=== PATIENT | female | born 1955 | race Caucasian/White ===

== ENCOUNTER → 2022-05-29 10:10 | Outpatient (CLI) | payer MEDICARE, OTHER, SELFPAY ==
--- NOTE | 2022-05-29 10:12 | DI.RAD.S_ITS ---
PROCEDURE: XR CERVICAL SPINE 2V OR 3V INDICATIONS: cervical radiculopathy TECHNIQUE: 3 view(s) of the cervical spine were acquired. COMPARISON: None. FINDINGS: Bones: No fractures or dislocations to the superior T2 level. The lateral masses of C1 appear intact on the odontoid view. No suspicious bony lesions. There is moderate to severe disc space narrowing seen at C4-C5 and C5-C6, with moderate disc space narrowing seen at C6-C7 and C7-T1. Endplate irregularity and sclerosis are seen, which are overall worst at C5-C6. There is overall straightening of the normal cervical lordosis. Minimal anterolisthesis is seen at L3-L4, with minimal retrolisthesis at C5-C6 and C6-C7. Soft tissues: No prevertebral soft tissue swelling. The visualized lung demonstrates an unremarkable appearance. IMPRESSION: Cervical spine degenerative changes are seen, which are overall worst inferiorly. If it would be helpful for clinical management decision making, please consider a dedicated cervical spine MRI for further evaluation (assuming that there is no contraindication). Dictated by: Zaheer Ward M.D. on 05/29/2022 at 9:59 Approved by: Zaheer Ward M.D. on 05/29/2022 at 10:00
[2022-05-29 11:09] LABS: Add Manual Diff / Slide Review NO; Basophils Absolute Auto 100 /uL (0-100); Basophils Percent Auto 1.5 % (0-2); Eosinophils Absolute Auto 600 /uL (0-450); Eosinophils Percent Auto 16.5 % (2-4); Hematocrit 37.6 % (36-46); Hemoglobin 12.3 g/dL (12.0-16.0); Lymphocytes Absolute Auto 1200 /uL (1100-4500); Lymphocytes Percent Auto 31.5 % (25-40); Mean Corpuscular HGB Conc 32.8 % (30-36); Mean Corpuscular Hemoglobin 28.8 PG (26-34); Mean Corpuscular Volume 87.9 fL (80-100); Monocytes Absolute Auto 400 /uL (0-900); Monocytes Percent Auto 10.4 % (3-14); Neutrophils Absolute Auto 1600 /uL (1500-7000); Neutrophils Percent Auto 40.1 % (50-75); Platelet Count 296 X10^3/uL (150-400); Red Blood Cell Count 4.28 X10^6/uL (4.0-5.2); Red Cell Distribution Width 13.3 % (11.6-14.8); White Blood Cell Count 3.9 X10^3/uL (4.5-11.0)
[2022-05-29 11:22] LABS: Creatine Kinase 33 U/L (30-135)
[2022-05-29 11:26] LABS: Erythrocyte Sedimentation Rate 7 MM/HR (0-20)
[2022-05-29 11:44] LABS: Rheumatoid Factor < 8.6 IU/mL (<12.0)
[2022-06-01 18:27] LABS: ANA Screen, IFA Positive (.)
[2022-06-01 19:58] LABS: CCP Antibodies IgG/IgA 6 units (0-19)
== END ==
PROVIDERS: PCP Family Medicine; Referring Provider Family Medicine; Visit Provider Family Medicine
DX: M35.3 Polymyalgia rheumatica (principal); M47.22 Other spondylosis with radiculopathy, cervical region; M25.50 Pain in unspecified joint
CPT/HCPCS: 36415; 72040; 82550; 85025; 85651; 86038; 86200; 86430

== ENCOUNTER → 2022-06-02 08:58 | Outpatient (CLI) | payer MEDICARE, OTHER, SELFPAY ==
[2022-06-03 17:17] LABS: DNA (DS) Antibody 3 IU/mL (0-9)
== END ==
PROVIDERS: PCP Family Medicine; Visit Provider Family Medicine
DX: R76.8 Other specified abnormal immunological findings in serum (principal)
CPT/HCPCS: 86225; 86235

== ENCOUNTER → 2022-06-02 16:51 | Outpatient (CLI) | payer MEDICARE, OTHER, SELFPAY ==
--- NOTE | 2022-06-02 16:52 | DI.MRI.S_ITS ---
PROCEDURE: MR CERVICAL SPINE WO CON INDICATIONS: cervical radiculopathy TECHNIQUE: Noncontrast sagittal T1 spin echo and T2 fast spin echo, sagittal STIR, foraminal oblique sagittal T2 fast spin echo, and axial gradient echo or T2 fast spin echo through the cervical spine. COMPARISON: [facility], CR, XR CERVICAL SPINE 2V OR 3V, 05/29/2022, 10:36. FINDINGS: Image quality: This examination is limited by involuntary motion artifact. Alignment and Curvature: There is overall straightening of the normal cervical lordosis. There is minimal retrolisthesis seen at C4-C5, C5-C6, and C6-C7. Bone Marrow: Marrow demonstrates normal overall signal. Spinal Cord: Visualized spinal cord has normal size and signal. No cerebellar tonsillar herniation. Paraspinous Soft Tissues: No paravertebral masses. Prevertebral soft tissues are normal in thickness. C2-C3: No significant abnormality is seen. C3-C4: Mild loss of disc height is seen. Loss of disc signal is seen. A mild degree of generalized disc osteophyte complex is seen. There is minimal right-sided and mild left-sided facet hypertrophy. There is moderate right-sided and [id number] left-sided neural foraminal narrowing. Minimal central canal narrowing is seen. C4-C5: At least moderate loss of disc height and disc signal can be seen. Moderate generalized disc osteophyte complex is seen. There is a central disc osteophyte protrusion seen. Moderate facet hypertrophy is seen, left worse than right. Moderate bilateral neural foraminal narrowing is seen. Moderate central canal narrowing is seen. There is associated mass effect upon the ventral spinal cord. C5-C6: At least moderate loss of disc height and disc signal can be seen. At least moderate disc osteophyte complex is seen, with a central disc osteophyte protrusion. At least moderate facet hypertrophy is seen, left worse than right. There is moderate to severe left-sided and moderate right-sided neural foraminal narrowing. Moderate central canal narrowing is seen. There is associated mass effect upon the ventral spinal cord. C6-C7: Moderate loss of disc height is seen. Loss of disc signal is seen. At least moderate disc osteophyte complex is seen, with a central disc osteophyte protrusion. Moderate facet joint hypertrophy is seen. There is moderate right-sided and at least moderate left-sided neural foraminal narrowing. Moderate central canal narrowing is seen. A minimal amount of mass effect can be seen upon the ventral spinal cord. C7-T1: [id number] loss of disc height and disc signal can be seen. A mild degree of generalized disc osteophyte complex is seen. No significant neural foraminal or central canal narrowing can be seen. IMPRESSION: Multiple levels of cervical spine degenerative change are seen, which are overall worst at the C5-C6 level. Dictated by: Zaheer Ward M.D. on 06/03/2022 at 11:58 Approved by: Zaheer Ward M.D. on 06/03/2022 at 12:01
== END ==
PROVIDERS: PCP Family Medicine; Referring Provider Family Medicine; Visit Provider Family Medicine
DX: M47.22 Other spondylosis with radiculopathy, cervical region; R76.8 Other specified abnormal immunological findings in serum
CPT/HCPCS: 72141; 86225; 86235

== ENCOUNTER → 2023-10-26 16:03 | Outpatient (CLI) | payer MEDICARE, OTHER, SELFPAY ==
[2023-10-26 17:27] LABS: Add Manual Diff / Slide Review NO; Basophils Absolute Auto 100 /uL (0-100); Basophils Percent Auto 2.1 % (0-2); Eosinophils Absolute Auto 400 /uL (0-450); Eosinophils Percent Auto 9.8 % (2-4); Hematocrit 38.8 % (36-46); Hemoglobin 12.9 g/dL (12.0-16.0); Lymphocytes Absolute Auto 1200 /uL (1100-4500); Lymphocytes Percent Auto 26.5 % (25-40); Mean Corpuscular HGB Conc 33.1 % (30-36); Mean Corpuscular Hemoglobin 29.4 PG (26-34); Mean Corpuscular Volume 88.7 fL (80-100); Monocytes Absolute Auto 500 /uL (0-900); Monocytes Percent Auto 10.4 % (3-14); Neutrophils Absolute Auto 2300 /uL (1500-7000); Neutrophils Percent Auto 51.2 % (50-75); Platelet Count 306 X10^3/uL (150-400); Red Blood Cell Count 4.38 X10^6/uL (4.0-5.2); Red Cell Distribution Width 13.8 % (11.6-14.8); White Blood Cell Count 4.6 X10^3/uL (4.5-11.0)
[2023-10-26 17:39] LABS: Alanine Aminotransferase 15 IU/L (<35); Albumin 3.9 g/dL (3.5-5.0); Albumin Globulin Ratio 1.4 (1.0-2.8); Alkaline Phosphatase 63 U/L (38-126); Aspartate Aminotransferase 26 IU/L (14-36); Bilirubin Total 0.3 mg/dL (0.2-1.3); Blood Urea Nitrogen 27 mg/dL (7-17); Calcium 8.8 mg/dL (8.4-10.2); Carbon Dioxide 32 mmol/L (22-32); Chloride 105 mmol/L (98-107); Estimated Glomerular Filt Rate > 60 mL/min (>60); Globulin 2.7 g/dL (1.7-4.1); Glucose 108 mg/dL (80-110); HEMOLYSIS < 15 (0-50); Potassium 3.8 mmol/L (3.4-5.1); Sodium 139 mmol/L (137-145); Total Protein 6.6 g/dL (6.3-8.2)
[2023-10-26 17:43] LABS: Rheumatoid Factor < 8.6 IU/mL (<12.0)
[2023-10-26 18:27] LABS: Vitamin B12 422 pg/mL (239-931)
[2023-10-26 21:48] LABS: Erythrocyte Sedimentation Rate 6 MM/HR (0-20)
[2023-10-29 18:12] LABS: CCP Antibodies IgG/IgA 10 units (0-19)
== END ==
PROVIDERS: PCP Family Medicine; Referring Provider Physician Assistant; Visit Provider Physician Assistant
DX: F32.A Depression, unspecified (principal); R53.83 Other fatigue
CPT/HCPCS: 36415; 80053; 82607; 85025; 85651; 86200; 86430

== ENCOUNTER → 2023-11-09 10:43 | Outpatient (CLI) | payer MEDICARE, OTHER, SELFPAY ==
[2023-11-09 12:37] LABS: Cholesterol 131 mg/dL (140-199); HDL Cholesterol 66 mg/dL (40-60); LDL Cholesterol Calculated 41 mg/dL (<100); Triglycerides 118 mg/dL (35-150)
[2023-11-09 12:42] LABS: High Sensitivity CRP - Cardiac 1.4 mg/L (1.0-3.0)
[2023-11-09 13:12] LABS: TSH w/ Reflex to FT4 1.15 uIU/mL (0.47-4.68)
== END ==
PROVIDERS: PCP Family Medicine; Referring Provider Family Medicine; Visit Provider Family Medicine
DX: Z13.220 Encounter for screening for lipoid disorders (principal); R53.83 Other fatigue; M25.50 Pain in unspecified joint
CPT/HCPCS: 36415; 80061; 84443; 86140

== ENCOUNTER → 2025-03-05 12:26 | Outpatient (CLI) | payer MEDICARE, OTHER, SELFPAY | PROVIDERS: PCP Family Medicine; Referring Provider Family Medicine; Visit Provider Family Medicine | DX: R76.8 Other specified abnormal immunological findings in serum (principal); M06.9 Rheumatoid arthritis, unspecified | CPT/HCPCS: 36415; 85651; 86140 ==

== ENCOUNTER 2025-03-25 20:28 | Inpatient (IN) | payer MEDICARE, OTHER, SELFPAY ==
[2025-03-25 21:11] VITALS: BP 138/73; PULSE 93; RESP 18; TEMP 36.7; O2SAT 98; BMI 23.0
[2025-03-25] MEDS: ONDANSETRON 4 MG/2 ML INJ IV (21:27)
[2025-03-25 21:31] LABS: Add Manual Diff / Slide Review NO; Hematocrit 43.2 % (36-46); Hemoglobin 14.3 g/dL (12.0-16.0); Lymphocytes Absolute Auto 1300 /uL (1100-4500); Mean Corpuscular HGB Conc 33.2 % (30-36); Mean Corpuscular Hemoglobin 30.7 PG (26-34); Mean Corpuscular Volume 92.4 fL (80-100); Platelet Count 400 X10^3/uL (150-400)
[2025-03-25 21:41] LABS: Alanine Aminotransferase 27 IU/L (<35); Albumin 4.3 g/dL (3.5-5.0); Albumin Globulin Ratio 1.7 (1.0-2.8); Alkaline Phosphatase 63 U/L (38-126); Blood Urea Nitrogen 24 mg/dL (7-17); Calcium 9.3 mg/dL (8.4-10.2); Carbon Dioxide 31 mmol/L (22-32); Chloride 101 mmol/L (98-107); Estimated Glomerular Filt Rate > 60 mL/min (>60); Globulin 2.6 g/dL (1.7-4.1); Glucose 104 mg/dL (70-99); HEMOLYSIS < 15 (0-50); Lipase 316 U/L (23-300); Potassium 4.1 mmol/L (3.4-5.1); Sodium 139 mmol/L (137-145); Total Protein 6.9 g/dL (6.3-8.2)
--- NOTE | 2025-03-25 21:55 | DI.CT.S_ITS ---
PROCEDURE: CT ABDOMEN PELVIS W CON INDICATIONS: history of sbo, has abd pain and bloating TECHNIQUE: After the administration of intravenous contrast, axial sections acquired from the lung bases to the pubic symphysis. Coronal and sagittal reformats were performed. For radiation dose reduction, the following was used: automated exposure control, adjustment of mA and/or kV according to patient size. COMPARISON: None. FINDINGS: Image quality: Diagnostic. Lower Chest: No significant findings. ABDOMEN: Liver: No solid mass. Simple hepatic cysts and subcentimeter hypodensities which are too small to accurately characterize. Gallbladder: No radiopaque gallstones or wall thickening. Biliary ducts: No biliary dilation. Pancreas: No ductal dilation. Spleen: Size is within normal limits. Adrenal Glands: No adrenal nodules. Kidneys and Ureters: No hydronephrosis. No solid mass. No complex renal cystic lesion which requires follow up. Stomach and Bowel: Partial colectomy with left lower quadrant end colostomy. Wall thickening of the distal colon extending into the colostomy. There is a large burden of stool throughout the entire colon leading to the colostomy. Small bowel is normal in caliber. Peritoneum: No abnormal intraperitoneal fluid. No free air. Ventral Wall: No significant ventral hernia. Abdominal Nodes: No retroperitoneal or mesenteric adenopathy by size criteria. Vessels: Aorta and inferior vena cava are normal in size. PELVIS: Pelvic Organs: Unremarkable. Bladder: No bladder wall thickening, accounting for underdistention. Pelvic Nodes: No enlarged lymph nodes. Miscellaneous: No inguinal hernias are seen. Bones: No aggressive osseous abnormality. Degenerative changes of the spine with dextroscoliotic curvature. IMPRESSION: 1. Partial colectomy with left lower quadrant end colostomy. There is a significant stool burden throughout the entire colon leading to the colostomy. Findings are concerning for significant constipation versus obstruction of the colostomy, recommend clinical correlation. 2. Wall thickening of the distal colon leading into the colostomy concerning for colitis. 3. No evidence of small-bowel obstruction. Dictated by: Neville Kenny M.D. on 03/25/2025 at 22:22 Approved by: Neville Kenny M.D. on 03/25/2025 at 22:27
[2025-03-25 22:04] LABS: Ictotest Urine Negative (Negative)
[2025-03-26] VITALS (12 sets, daily range): BP systolic 107–136; BP diastolic 56–81; PULSE 74–101; RESP 16–19; TEMP 36.1–36.2; O2SAT 91–98; BMI 22.8
[2025-03-26] MEDS: PIPERACILLIN/TAZO 4.5 GM in SODIUM CHLORIDE 0.9% 100 ML IV (01:41)
--- NOTE | 2025-03-26 01:56 | ED_ITS ---
HPI - Abdominal Pain General Chief Complaint: Abdominal Pain Stated Complaint: poss bowel obstruction Time Seen by Provider: 03/26/25 00:15 Source: patient Mode of arrival: Ambulatory History of Present Illness HPI narrative: 69-year-old female with history of anal cancer diagnosed 20 years ago in [facility], initially treated with chemotherapy and radiation for 6 weeks, seemed to be doing well for a number of years, about 12 years ago patient started having stricture related bowel obstructions, leading to partial bowel resection and left lower quadrant colostomy, subsequent hernia in the central incision that was treated with mesh, and revision of the ostomy done also about 12 years ago, as her last surgical intervention in this area. She moved from [place] to [place] for years ago. Now having left lower quadrant discomfort in the area of her ostomy, decreased output in her ostomy bag the no ostomy output. She tried MiraLax. Here for increasing pain, concerned about possible obstruction. MD complaint: abdominal pain Related Data Previous Rx's ?Medication ?Instructions ?Recorded clobetasol 0.05 % topical cream 1 g topical BID #60 gr ams 07/16/24 rizatriptan 10 mg tablet 10 mg PO Q12H PRN migraine 1 09/17/23 headache #9 tabs meloxicam 15 mg tablet 15 mg PO DAILY PRN pain, mod erate 11/20/24 to severe #90 tabs estradiol 0.1 mg/24 hr semiweekly 1 patch transdermal 2XW #24 ea 01/03/25 transdermal patch desvenlafaxine succinate 50 mg 50 mg PO DAILY #90 tabs 01/15/25 tablet,extended release 24 hr sumatriptan succinate 100 mg tablet 100 mg PO Q12H PRN for migraine #9 01/22/25 tabs valacyclovir 1 gram tablet 1,000 mg PO DAILY #90 tabs 02/04/25 bupropion HCl 75 mg tablet 75 mg PO DAILY #90 tabs progesterone micronized 100 mg See Rx Instructions PO BEDTIME 03/06/25 capsule Balance estradiol and protec t endometrium #120 caps progesterone micronized 200 mg See Rx Instructions PO .COMPLEX 03/06/25 capsule #90 caps dicyclomine 20 mg tablet 20 mg PO QPM #90 tabs polyethylene glycol 3350 17 gram 17 gm PO DAILY PRN Ab dominal 03/26/25 oral powder packet Distention #30 ea Allergies Allergy/AdvReac Type Severity Reaction Status Date / Time NSAIDS (Non-Steroidal AdvReac Intermediate Irritates Verified 03/25/25 21:16 Anti-Inflamma stomach lining Patient History Medical History Gastritis due to nonsteroidal anti-inflammatory drug (NSAID) GERD (gastroesophageal reflux disease) Scleroderma Herpes Anal cancer (~2018) HPV in female Migraine aura without headache Psoriasis Surgical History Anesthesia History of intestinal surgery (~2019) Family History Father COPD (chronic obstructive pulmonary disease) Mother Osteoarthritis Bowel obstruction Chronic pain Sister Osteoarthritis Social History marital status: household members: spouse lives independently: Yes caregiver/support person: No pets and animals: Yes education level: college (2 year nursing ) occupational status: previously employed (Retired Nurse ) seatbelt use: always helmet use: Yes water heater temp set < 120 deg: Yes working smoke detector in home: Yes fire extinguisher in home: Yes carbon monox detector in home: Yes firearms in home: No do you feel safe at home: Yes Smoking Status: Never smoker alcohol intake: former substance use type: does not use well-balanced diet: about half the time daily servings fruits/ve-4 caffeine: Yes (rare/occasional) eating out: rarely or never Type(s) of exercise: walking frequency: daily duration: 15-30 minutes/day Smoking Status: Never smoker Exam Narrative Exam Narrative: GENERAL: Well-developed patient, in mild distress. HEAD: Atraumatic. Normocephalic. EYES: Pupils equal round and reactive. Extraocular motions intact. No scleral icterus. No injection or drainage. ENT: Nose without bleeding, purulent drainage. Throat without erythema, tonsillar hypertrophy or exudate. Airway patent. NECK: Trachea midline. Non tender CARDIOVASCULAR: Regular rate and rhythm without murmurs, gallops, or rubs. RESPIRATORY: Clear to auscultation. Breath sounds equal bilaterally. No wheezes, rales, or rhonchi. GASTROINTESTINAL: Abdomen with central incision, left lower quadrant ostomy, tenderness pilo-osotomy. Left lower quadrant ostomy site with brown stool, silvestre ostomy seemed well-appearing. EXTREMITIES: No edema or joint tenderness. BACK: Nontender without deformity or crepitance. No flank tenderness. NEURO: AOx3. Motor functions grossly nonfocal. SKIN: No rash or erythema of visible areas Initial Vital Signs Initial Vital Signs: Vital Signs Temperature 98.1 F 03/25/25 21:11 Pulse Rate 93 H 03/25/25 21:11 Respiratory Rate 18 03/25/25 21:11 Blood Pressure 138/73 03/25/25 21:11 Pulse Oximetry 98 03/25/25 21:11 Oxygen Delivery Method Room Air 03/25/25 21:11 Course Orders Ordered: Acetaminophen (Acetaminophen 325 Mg Tablet) 650 mg PO Q6H PRN PRN Reason: Fever/Mild Pain (1-3) Sodium Chloride (Normal Saline 0.9%) 1,000 mls @ 75 mls/hr IV CONT [facility] Last Admin: 03/26/25 17:46 Dose: 75 mls/hr Documented By: Infusion: 03/26/25 17:46 Dose: Infused Documented By: Admin: 03/26/25 05:33 Dose: 75 mls/hr Documented By: Piperacillin Sod/Tazobactam (Sod 3.375 gm/ Sodium Chloride) 100 mls @ 25 mls/hr IV Q8H [facility] Last Admin: 03/26/25 16:01 Dose: 25 mls/hr Documented By: Infusion: 03/26/25 11:16 Dose: Infused Documented By: Admin: 03/26/25 07:16 Dose: 25 mls/hr Documented By: Metoclopramide HCl (Metoclopramide 10 Mg/2 Ml Inj) 10 mg IV Q8HR [facility] Last Admin: 03/26/25 16:01 Dose: 10 mg Documented By: INGE Naloxone HCl (Naloxone 0.4 Mg/Ml Vial) 0.2 mg IV Q2MIN PRN PRN Reason: Opiate Reversal Ondansetron HCl (Ondansetron 4 Mg/2 Ml Inj) 4 mg IV NOW PRN PRN Reason: Nausea And Vomiting Last Admin: 03/25/25 21:27 Dose: 4 mg Documented By: JG Ondansetron HCl (Ondansetron 4 Mg Odt) 4 mg PO NOW PRN PRN Reason: Nausea And Vomiting Ondansetron HCl (Ondansetron 4 Mg/2 Ml Inj) 4 mg IV Q8HR PRN PRN Reason: Nausea And Vomiting Polyethylene Glycol (Polyethylene Glycol 3350 17 Gm Powd.Pack) 17 gm PO DAILY [facility] Last Admin: 03/26/25 08:33 Dose: 17 gm Documented By: INGE Discontinued Medications Piperacillin Sod/Tazobactam (Sod 4.5 gm/ Sodium Chloride) 100 mls @ 200 mls/hr IV NOW ONE Stop: 03/26/25 00:44 Last Infusion: 03/26/25 02:15 Dose: Infused Documented By: Admin: 03/26/25 01:41 Dose: 200 mls/hr Documented By: BARNEY Piperacillin Sod/Tazobactam (Sod 4.5 gm/ Sodium Chloride) 100 mls @ 200 mls/hr IV Q8H [facility] Last Admin: 03/26/25 07:38 Dose: Not Given Documented By: INGE Piperacillin Sod/Tazobactam (Sod 4.5 gm/ Sodium Chloride) 100 mls @ 200 mls/hr IV Q8H [facility] Vital Signs Vital signs: Vital Signs - 8 hr 03/25/25 21:11 03/26/25 00:58 03/26/25 00:58 Temperature 98.1 F Pulse Rate 93 H 101 H Respiratory Rate 18 18 Blood Pressure 138/73 125/77 Pulse Oximetry 98 98 Oxygen Delivery Method Room Air 03/26/25 01:00 03/26/25 01:00 03/26/25 01:30 Temperature Pulse Rate 97 H Respiratory Rate 17 Blood Pressure 136/81 118/63 Pulse Oximetry 97 Oxygen Delivery Method Room Air 03/26/25 01:30 03/26/25 02:00 03/26/25 02:00 Temperature Pulse Rate 94 H 79 Respiratory Rate 18 Blood Pressure 113/61 Pulse Oximetry 96 96 Oxygen Delivery Method Room Air 03/26/25 02:30 03/26/25 02:30 Temperature Pulse Rate 90 Respiratory Rate 17 Blood Pressure 127/61 Pulse Oximetry 94 Oxygen Delivery Method Room Air MDM - Abdominal Pain Lab Data Attestation: I reviewed the patient's lab results. Lab results narrative: White blood cell count 77952, hemoglobin 14.3, platelets adequate. Glucose 104. BUN 24 with creatinine 0.74, serum CO2 31 normal, electrolytes normal. Liver functions normal. Lipase 316 slight elevation. Urine dip negative. 03/26/25 06:16 03/26/25 06:16 Labs: Lab Results 03/25/25 03/25/25 Range/Units 21:23 21:30 WBC 10.5 (4.5-11.0) X10^3/uL RBC 4.67 (4.0-5.2) X10^6/uL Hgb 14.3 (12.0-16.0) g/dL Hct 43.2 (36-46) % MCV 92.4 (80-100) fL MCH 30.7 (26-34) PG MCHC 33.2 (30-36) % RDW 13.3 (11.6-14.8) % Plt Count 400 (150-400) X10^3/uL Neut % (Auto) 71.9 (50-75) % Lymph % (Auto) 12.9 L (25-40) % [place] % (Auto) 9.7 (3-14) % Eos % (Auto) 4.8 H (2-4) % Baso % (Auto) 0.7 (0-2) % Neut # (Auto) 7500 H (2540-0971) /uL Lymph # (Auto) 1300 (2007-9838) /uL [place] # (Auto) 1000 H (0-900) /uL Eos # (Auto) 500 H (0-450) /uL Baso # (Auto) 100 (0-100) /uL Sodium 139 (137-145) mmol/L Potassium 4.1 (3.4-5.1) mmol/L Chloride 101 (98-107) mmol/L Carbon Dioxide 31 (22-32) mmol/L BUN 24 H (7-17) mg/dL Creatinine 0.74 (0.52-1.04) mg/dL Estimated GFR > 60 (>60) mL/min BUN/Creatinine Ratio 32.4 H (6-22) Glucose 104 H (70-99) mg/dL Calcium 9.3 (8.4-10.2) mg/dL Total Bilirubin 0.2 (0.2-1.3) mg/dL AST 30 (14-36) IU/L ALT 27 (<35) IU/L Alkaline Phosphatase 63 (38-126) U/L Total Protein 6.9 (6.3-8.2) g/dL Albumin 4.3 (3.5-5.0) g/dL Globulin 2.6 (1.7-4.1) g/dL Albumin/Globulin Ratio 1.7 (1.0-2.8) Lipase 316 H (23-300) U/L Ur Bilirubin Confirm Negative (Negative) Point of care testing: Urine Dip Bedside Urine Glucose Negative Bedside Urine Bilirubin ++ 2 Bedside Urine Ketone - Negative Urine Specific [place] 1.030 Bedside Urine Occult Blood - Negative Bedside Urine pH 6.0 Bedside Urine Protein - Negative Bedside Urine Urobilinogen - Negative Bedside Urine Nitrite - Negative Bedside Urine Leukocytes - Negative Esterase Imaging Data CT scan - abdomen/pelvis: Radiologist's Impression: [address] [address] [address] Scan Report Signed Patient: Erin Perry MR#: [id number] : 1955 Acct:[id number] Age/Sex: 69 / F Date of Service: 03/25/25 Loc: ED Accession Number: [id number] Procedure: CT abdomen pelvis w con Ordering Provider: Mikel Bailon MD PROCEDURE: CT ABDOMEN PELVIS W CON INDICATIONS: history of sbo, has abd pain and bloating TECHNIQUE: After the administration of intravenous contrast, axial sections acquired from the lung bases to the pubic symphysis. Coronal and sagittal reformats were performed. For radiation dose reduction, the following was used: automated exposure control, adjustment of mA and/or kV according to patient size. COMPARISON: None. FINDINGS: Image quality: Diagnostic. Lower Chest: No significant findings. ABDOMEN: Liver: No solid mass. Simple hepatic cysts and subcentimeter hypodensities which are too small to accurately characterize. Gallbladder: No radiopaque gallstones or wall thickening. Biliary ducts: No biliary dilation. Pancreas: No ductal dilation. Spleen: Size is within normal limits. Adrenal Glands: No adrenal nodules. Kidneys and Ureters: No hydronephrosis. No solid mass. No complex renal cystic lesion which requires follow up. Stomach and Bowel: Partial colectomy with left lower quadrant end colostomy. Wall thickening of the distal colon extending into the colostomy. There is a large burden of stool throughout the entire colon leading to the colostomy. Small bowel is normal in caliber. Peritoneum: No abnormal intraperitoneal fluid. No free air. Ventral Wall: No significant ventral hernia. Abdominal Nodes: No retroperitoneal or mesenteric adenopathy by size criteria. Vessels: Aorta and inferior vena cava are normal in size. PELVIS: Pelvic Organs: Unremarkable. Bladder: No bladder wall thickening, accounting for underdistention. Pelvic Nodes: No enlarged lymph nodes. Miscellaneous: No inguinal hernias are seen. Bones: No aggressive osseous abnormality. Degenerative changes of the spine with dextroscoliotic curvature. IMPRESSION: 1. Partial colectomy with left lower quadrant end colostomy. There is a significant stool burden throughout the entire colon leading to the colostomy. Findings are concerning for significant constipation versus obstruction of the colostomy, recommend clinical correlation. 2. Wall thickening of the distal colon leading into the colostomy concerning for colitis. 3. No evidence of small-bowel obstruction. Dictated by: Neville Kenny M.D. on 03/25/2025 at 22:22 Approved by: Neville eKnny M.D. on 03/25/2025 at 22:27 [facility] Narrative Medical decision making narrative: 69-year-old female with history of anal cancer status post remote radiation and chemo 20 years ago in [place], 12 years ago started developing strictures and had partial bowel resection with left lower quadrant colostomy, incisional hernia repair, colostomy revision as her last surgical intervention about 12 years ago, moved to [place] for years ago, now having decreased output and then no output through the ostomy bag, concern for possible obstruction. Tenderness left lower quadrant. Stool in bag nonbloody labs pending. Repeat CT imaging. Lab data: White blood cell count 83008, hemoglobin 14.3, platelets adequate. Glucose 104. BUN 24 with creatinine 0.74, serum CO2 31 normal, electrolytes normal. Liver functions normal. Lipase 316 slight elevation. Urine dip negative. GFR favorable, CT abdomen and pelvis ordered. CT abdomen and pelvis. Impressions: ?1. Partial colectomy with left lower quadrant end colostomy. There is a significant stool burden throughout the entire colon leading to the colostomy. Findings are concerning for significant constipation versus obstruction of the colostomy, recommend clinical correlation.2. Wall thickening of the distal colon leading into the colostomy concerning for colitis.3. No evidence of small-bowel obstruction. See radiololgy report. IV Zosyn for colitis. Patient now having some stooling in the bag, brown stool in collection bag, silvestre looks pink. Still has significant pain. Consider admission for colitis. 0345, case discussed with surgery Dr. Blue who will consult, admit to hospitalist. 040, case discussed with hospitalist Dr. Pinto who accepts patient for admission Critical Care Time Critical Care Time Critical Care Time: Yes Total Critical Care Time: 35 Attestation: The high probability of a clinically significant, sudden or life threatening deterioration of the [gastrointestinal, abdominopelvic] system(s) required my full and direct attention, intervention and personal management. The aggregate critical care time was [35] minutes. This time is in addition to time spent performing reported procedures but includes the following: [x] Data Review and interpretation [x] Patient assessment and monitoring of vital signs [x] Documentation [x] Medication orders and management Discharge Plan Departure Patient Disposition: Admitted as Observation Clinical Impression: Colitis, History of colostomy Admit Date/Time: 03/26/25 04:04 Admit Provider: Joaquin Pinto
--- NOTE | 2025-03-26 04:09 | PM.HP.1 ---
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 Other PMH includes NSAID-induced gastritis, GERD, scleroderma, HSV, migraine, psoriasis. In ED, she had good ostomy flow but with ongoing pain. CT showed possible colitis. ED Attg spoke with surgeon chemistry quality control technician who felt no surgical need at this time. Zosyn given. [facility] Medical History Gastritis due to nonsteroidal anti-inflammatory drug (NSAID) GERD (gastroesophageal reflux disease) Scleroderma Herpes Anal cancer (~2018) HPV in female Migraine aura without headache Psoriasis Surgical History Anesthesia History of intestinal surgery (~2019) Family History Father COPD (chronic obstructive pulmonary disease) Mother Osteoarthritis Bowel obstruction Chronic pain Sister Osteoarthritis Social History marital status: household members: spouse ( has Parkinson's) lives independently: Yes caregiver/support person: No pets and animals: Yes education level: college (2 year nursing ) occupational status: previously employed (Retired Nurse ) seatbelt use: always helmet use: Yes water heater temp set < 120 deg: Yes working smoke detector in home: Yes fire extinguisher in home: Yes carbon monox detector in home: Yes firearms in home: No do you feel safe at home: Yes Smoking Status: Never smoker alcohol intake: former (Quit 2018 (causes migraines) ) substance use type: does not use well-balanced diet: about half the time daily servings fruits/ve-4 caffeine: Yes (rare/occasional) eating out: rarely or never Type(s) of exercise: walking frequency: daily duration: 15-30 minutes/day Meds Home Medications and Allergies Home Medications ?Medication ?Instructions ?Recorded ?Confirmed ?Type clobetasol 0.05 % topical cream 1 g topical BID #60 grams 07/16/24 03/05/25 Rx rizatriptan 10 mg tablet 10 mg PO Q12H PRN migraine 07/18/24 03/05/25 Rx Held on 12/11/24. headache #9 tabs Instructions: trying to get higher quantity of sumatriptan meloxicam 15 mg tablet 15 mg PO DAILY PRN pain, moderate 11/20/24 03/05/25 Rx to severe #90 tabs estradiol 0.1 mg/24 hr semiweekly 1 patch transdermal 2XW #24 ea 01/03/25 03/05/25 Rx transdermal patch desvenlafaxine succinate 50 mg 50 mg PO DAILY #90 tabs 01/15/25 03/05/25 Rx tablet,extended release 24 hr sumatriptan succinate 100 mg tablet 100 mg PO Q12H PRN for migraine #9 01/22/25 03/05/25 Rx tabs valacyclovir 1 gram tablet 1,000 mg PO DAILY #90 tabs 02/04/25 03/05/25 Rx bupropion HCl 75 mg tablet 75 mg PO DAILY #90 tabs 03/05/25 03/05/25 Rx progesterone micronized 100 mg See Rx Instructions PO BEDTIME 03/06/25 Rx capsule Balance estradiol and protect endometrium #120 caps progesterone micronized 200 mg See Rx Instructions PO .COMPLEX 03/06/25 Rx capsule #90 caps dicyclomine 20 mg tablet 20 mg PO QPM #90 tabs 03/19/25 Rx Allergies Allergy/AdvReac Type Severity Reaction Status Date / Time NSAIDS (Non-Steroidal AdvReac Intermediate Irritates Verified 03/25/25 21:16 Anti-Inflamma stomach lining Review of Systems Review of Systems Narrative: as per HPI. Rest of 10-system review negative. Exam Vital Signs (past 8 hours): - 03/25/25 21:11 03/26/25 00:58 03/26/25 00:58 Temperature 98.1 F Pulse Rate 93 H 101 H Respiratory Rate 18 18 Blood Pressure 138/73 125/77 Pulse Oximetry 98 98 Oxygen Delivery Method Room Air 03/26/25 01:00 03/26/25 01:00 03/26/25 01:30 Temperature Pulse Rate 97 H Respiratory Rate 17 Blood Pressure 136/81 118/63 Pulse Oximetry 97 Oxygen Delivery Method Room Air 03/26/25 01:30 03/26/25 02:00 03/26/25 02:00 Temperature Pulse Rate 94 H 79 Respiratory Rate 18 Blood Pressure 113/61 Pulse Oximetry 96 96 Oxygen Delivery Method Room Air 03/26/25 02:30 03/26/25 02:30 Temperature Pulse Rate 90 Respiratory Rate 17 Blood Pressure 127/61 Pulse Oximetry 94 Oxygen Delivery Method Room Air Oxygen Delivery Method Room Air Narrative Exam Narrative: Patient was evaluated entirely through 2-way audio/video telemedicine with RN assistance in exam. Physician was not present at beside in person at any time for this evaluation. Consent for telemedicine obviously obtained from patient. Const Other: awake, alert, no acute distress. HENMT Other: normocephalic, atraumatic Eyes Other: good eye contact, anicteric Neck Other: supple Resp Other: CTA-B Cardio Other: RRR GI Other: S/ND/+BS. mild T of stoma site. No drainage. Skin Other: no rash Neuro Other: normal speech Extrem Other: no edema Psych Other: normal mood, appropriate affect Objective Imaging CT scan - abdomen: Radiologist's impression: 1. Partial colectomy with left lower quadrant end colostomy. There is a significant stool burden throughout the entire colon leading to the colostomy. Findings are concerning for significant constipation versus obstruction of the colostomy, recommend clinical correlation. 2. Wall thickening of the distal colon leading into the colostomy concerning for colitis. 3. No evidence of small-bowel obstruction. Labs 03/25/25 21:23 03/25/25 21:23 Labs: Laboratory Results - last 24 hr 03/25/25 03/25/25 21:23 21:30 WBC 10.5 RBC 4.67 Hgb 14.3 Hct 43.2 MCV 92.4 MCH 30.7 MCHC 33.2 RDW 13.3 Plt Count 400 Neut % (Auto) 71.9 Lymph % (Auto) 12.9 L [place] % (Auto) 9.7 Eos % (Auto) 4.8 H Baso % (Auto) 0.7 Neut # (Auto) 7500 H Lymph # (Auto) 1300 [place] # (Auto) 1000 H Eos # (Auto) 500 H Baso # (Auto) 100 Sodium 139 Potassium 4.1 Chloride 101 Carbon Dioxide 31 BUN 24 H Creatinine 0.74 Estimated GFR > 60 BUN/Creatinine Ratio 32.4 H Glucose 104 H Calcium 9.3 Total Bilirubin 0.2 AST 30 ALT 27 Alkaline Phosphatase 63 Total Protein 6.9 Albumin 4.3 Globulin 2.6 Albumin/Globulin Ratio 1.7 Lipase 316 H Ur Bilirubin Confirm Negative Assessment & Plan Assessment and plan (1) Colitis: Status: Acute Assessment & Plan narrative: 69F with extensive abdominal history presents with significant constipation and likely colitis with some resolution in ED. 1. Acute colitis with resolving constipation, POA 2. s/p anal cancer with partial colon resection and current ostomy 3. Scleroderma, psoriasis 4. GERD Plan: 1. Admit to medicine, inpatient 2. Continue empiric Zosyn 3. Bowel regimen as needed 4. Daily BMP, Mg, CBC to monitor blood counts and electrolytes 5. Keep NPO for now 6. IV fluids 7. Recommend day team consult surgery for co-management 8. Reconcile home meds when verified. Time-Based Coding :: [TOTAL MINUTES] spent with patient and on the chart (including review of chart, obtaining history, exam, reviewing outside data, placing orders, documenting exam and treatment plan, and counseling patient) on [DATE].
[2025-03-26] MEDS: SODIUM CHLORIDE 0.9% 1,000 ML 75 ML IV ×2 (05:33→17:46)
[2025-03-26 06:47] LABS: Add Manual Diff / Slide Review NO; Hematocrit 38.8 % (36-46); Hemoglobin 13.2 g/dL (12.0-16.0); Lymphocytes Absolute Auto 1400 /uL (1100-4500); Mean Corpuscular HGB Conc 33.9 % (30-36); Mean Corpuscular Hemoglobin 31.1 PG (26-34); Mean Corpuscular Volume 91.6 fL (80-100); Platelet Count 323 X10^3/uL (150-400)
[2025-03-26 07:00] LABS: Blood Urea Nitrogen 20 mg/dL (7-17); Calcium 8.7 mg/dL (8.4-10.2); Carbon Dioxide 29 mmol/L (22-32); Chloride 104 mmol/L (98-107); Estimated Glomerular Filt Rate > 60 mL/min (>60); Glucose 99 mg/dL (70-99); HEMOLYSIS < 15 (0-50); Magnesium 2.1 mg/dL (1.6-2.3); Potassium 4.4 mmol/L (3.4-5.1); Sodium 135 mmol/L (137-145)
[2025-03-26] MEDS: PIPERACILLIN/TAZO 3.375 GM in SODIUM CHLORIDE 0.9% 100 ML IV ×3 (07:16→23:16)
--- NOTE | 2025-03-26 09:27 | P.HP_ITS ---
History of Present Illness History of Present Illness Date Patient Seen: 03/26/25 Time Patient Seen: 08:45 Date of Onset of Symptoms: 01/21/25 Chief complaint: poss bowel obstruction Narrative: Patient is a 69-year-old white female presents to the emergency room with left lower quadrant abdominal pain at her ostomy site states she has been having problems for approximately 2 months. Patient has been taking MiraLax with causing liquid stools but she still has the abdominal pain. She admits of some nausea but denies any vomiting. Patient was worked up in the emergency room was admitted to the hospital and I was asked see the patient for surgical evaluation. Patient has a history of a anal rectal cancer and was treated with an abdominal perineal resection in 2004 had subsequent peristomal hernia incisional hernias repaired. Patient was treated with radiation and chemo also. Patient's admitting laboratory shows WBC of 8.3 hemoglobin of 13.2 hematocrit is 38.8 platelets are 323,000 sodium is 135 potassium 4.4 chloride 109 bicarb is 29 BUN of 20 creatinine 0.76 random blood sugar is 99 normal LFTs but patient does have a slight elevation of her lipase at 3:16 a[address] Patient had a CT scan performed which shows stomach filled with the liquids with a very elongated dilated colon with the transverse colon dipping into her pelvis with large amount of stool balls within the colon with 1 large stool ball at the opening to the ostomy. Patient is also noted to have gallbladder without any stones but she does have some small hemangiomas surrounding the gallbladder 1 small hemangioma in the right lobe of the liver. No other findings are noted no lymphadenopathy is noted. Allergies: NSAIDs cause gastric upset Medications: See medication list Past medical history: Corrective lenses, 3 para 3 ab 0, history of migraines, gastritis and GERD, scleroderma, psoriasis, history of anorectal HPV cancer treated with surgery chemo and radiation in 2004. Patient denies any other heart lungs digestive musculoskeletal neurological seizure disorder psychiatric problems risk of infectious disease HIV or AIDS. 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 Also will check an ultrasound of the liver gallbladder rule out pathology with the elevated lipase but patient is having no upper abdominal pain associated with the pancreatitis. All questions were answered patient's satisfaction we will follow the patient with the hospitalist. No need for emergent surgical intervention at this time. [facility] Medical History Gastritis due to nonsteroidal anti-inflammatory drug (NSAID) GERD (gastroesophageal reflux disease) Scleroderma Herpes Anal cancer (~2018) HPV in female Migraine aura without headache Psoriasis Surgical History Anesthesia History of intestinal surgery (~2019) Family History Father COPD (chronic obstructive pulmonary disease) Mother Osteoarthritis Bowel obstruction Chronic pain Sister Osteoarthritis Social History marital status: household members: spouse lives independently: Yes caregiver/support person: No pets and animals: Yes education level: college (2 year nursing ) occupational status: previously employed (Retired Nurse ) seatbelt use: always helmet use: Yes water heater temp set < 120 deg: Yes working smoke detector in home: Yes fire extinguisher in home: Yes carbon monox detector in home: Yes firearms in home: No do you feel safe at home: Yes Smoking Status: Never smoker alcohol intake: former substance use type: does not use well-balanced diet: about half the time daily servings fruits/ve-4 caffeine: Yes (rare/occasional) eating out: rarely or never Type(s) of exercise: walking frequency: daily duration: 15-30 minutes/day Meds Home Medications and Allergies Home Medications ?Medication ?Instructions ?Recorded ?Confirmed ?Type clobetasol 0.05 % topical cream 1 g topical BID #60 gr ams 07/16/24 03/26/25 Rx rizatriptan 10 mg tablet 10 mg PO Q12H PRN migraine 1 09/17/23 03/26/25 Rx headache #9 tabs meloxicam 15 mg tablet 15 mg PO DAILY PRN pain, mod erate 11/20/24 03/26/25 Rx to severe #90 tabs estradiol 0.1 mg/24 hr semiweekly 1 patch transdermal 2XW #24 ea 01/03/25 03/26/25 Rx transdermal patch desvenlafaxine succinate 50 mg 50 mg PO DAILY #90 tabs 01/15/25 03/26/25 Rx tablet,extended release 24 hr sumatriptan succinate 100 mg tablet 100 mg PO Q12H PRN for migraine #9 01/22/25 03/26/25 Rx tabs valacyclovir 1 gram tablet 1,000 mg PO DAILY #90 tabs 02/04/25 03/26/25 Rx bupropion HCl 75 mg tablet 75 mg PO DAILY #90 tabs 03/26/25 Rx progesterone micronized 100 mg See Rx Instructions PO BEDTIME 03/06/25 03/26/25 Rx capsule Balance estradiol and protec t endometrium #120 caps progesterone micronized 200 mg See Rx Instructions PO .COMPLEX 03/06/25 03/26/25 Rx capsule #90 caps dicyclomine 20 mg tablet 20 mg PO QPM #90 tabs 03/26/25 Rx Allergies Allergy/AdvReac Type Severity Reaction Status Date / Time NSAIDS (Non-Steroidal AdvReac Intermediate Irritates Verified 03/25/25 21:16 Anti-Inflamma stomach lining Exam Vital Signs (past 8 hours): - 03/26/25 01:30 03/26/25 01:30 03/26/25 02:00 Temperature Pulse Rate 94 H Respiratory Rate 18 Blood Pressure 118/63 113/61 Pulse Oximetry 96 Oxygen Delivery Method Room Air 03/26/25 02:00 03/26/25 02:30 03/26/25 02:30 Temperature Pulse Rate 79 90 Respiratory Rate 17 Blood Pressure 127/61 Pulse Oximetry 96 94 Oxygen Delivery Method Room Air 03/26/25 03:00 03/26/25 03:00 03/26/25 03:30 Temperature Pulse Rate 82 99 H Respiratory Rate 17 Blood Pressure 117/63 Pulse Oximetry 94 97 Oxygen Delivery Method 03/26/25 03:30 03/26/25 04:00 03/26/25 04:00 Temperature Pulse Rate 91 H Respiratory Rate 17 Blood Pressure 122/72 118/68 Pulse Oximetry 96 Oxygen Delivery Method Room Air 03/26/25 04:30 03/26/25 04:30 03/26/25 05:21 Temperature 97.1 F L Pulse Rate 92 H 92 H Respiratory Rate 18 19 Blood Pressure 129/72 133/71 Pulse Oximetry 95 97 Oxygen Delivery Method Room Air Oxygen Delivery Method Room Air Objective Labs 03/26/25 06:16 03/26/25 06:16 Labs: Laboratory Results - last 24 hr 03/25/25 03/25/25 03/26/25 21:23 21:30 06:16 WBC 10.5 8.2 RBC 4.67 4.23 Hgb 14.3 13.2 Hct 43.2 38.8 MCV 92.4 91.6 MCH 30.7 31.1 MCHC 33.2 33.9 RDW 13.3 13.2 Plt Count 400 323 Neut % (Auto) 71.9 63.0 Lymph % (Auto) 12.9 L 17.6 L [place] % (Auto) 9.7 11.5 Eos % (Auto) 4.8 H 7.0 H Baso % (Auto) 0.7 0.9 Neut # (Auto) 7500 H 5200 Lymph # (Auto) 1300 1400 [place] # (Auto) 1000 H 900 Eos # (Auto) 500 H 600 H Baso # (Auto) 100 100 Sodium 139 135 L Potassium 4.1 4.4 Chloride 101 104 Carbon Dioxide 31 29 BUN 24 H 20 H Creatinine 0.74 0.76 Estimated GFR > 60 > 60 BUN/Creatinine Ratio 32.4 H 26.3 H Glucose 104 H 99 Calcium 9.3 8.7 Magnesium 2.1 Total Bilirubin 0.2 AST 30 ALT 27 Alkaline Phosphatase 63 Total Protein 6.9 Albumin 4.3 Globulin 2.6 Albumin/Globulin Ratio 1.7 Lipase 316 H Ur Bilirubin Confirm Negative Assessment & Plan Time-Based Coding :: [TOTAL MINUTES] spent with patient and on the chart (including review of chart, obtaining history, exam, reviewing outside data, placing orders, documenting exam and treatment plan, and counseling patient) on [DATE]. PROFEE Reinspector Document charge(s): Yes
--- NOTE | 2025-03-26 12:23 | PM.DS.1 ---
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 Other PMH includes NSAID-induced gastritis, GERD, scleroderma, HSV, migraine, psoriasis. In ED, she had good ostomy flow but with ongoing pain. CT showed possible colitis. ED Attg spoke with surgeon online education manager who felt no surgical need at this time. Zosyn given. Hospital course: 03/26: Case reviewed patient evaluated with general surgery who recommended a Gastrografin enema through the ostomy. This was performed with good result Patient discharged home with MiraLax as needed 03/27: Decision was made not to do the Gastrografin enema after multiple voluminous soft bowel movements were occurred patient was discharged home and will follow up with PCP Assessment and Plan: Impacted ostomy status post Gastrografin enema where release 35 minutes were evaluated in management of this patient which included [id number] evaluation conversation with patient discussion with surgery and extensive review of imaging Discharge Providers Provider Date of admission: 03/26/25 04:04 Discharge Date: 03/27/25 Primary care physician: Wilma Adhikari DO Consults: 03/26/25 04:07 Consult to Discharge Planning Routine Comment: Discharge provider: Walt Tran MD Exam Vital Signs (past 8 hours): - 03/26/25 04:30 03/26/25 04:30 03/26/25 05:21 Temperature 97.1 F L Pulse Rate 92 H 92 H Respiratory Rate 18 19 Blood Pressure 129/72 133/71 Pulse Oximetry 95 97 Oxygen Delivery Method Room Air Oxygen Delivery Method Room Air Objective Labs 03/26/25 06:16 03/26/25 06:16 Labs: Laboratory Results - last 24 hr 03/25/25 03/25/25 03/26/25 21:23 21:30 06:16 WBC 10.5 8.2 RBC 4.67 4.23 Hgb 14.3 13.2 Hct 43.2 38.8 MCV 92.4 91.6 MCH 30.7 31.1 MCHC 33.2 33.9 RDW 13.3 13.2 Plt Count 400 323 Neut % (Auto) 71.9 63.0 Lymph % (Auto) 12.9 L 17.6 L [place] % (Auto) 9.7 11.5 Eos % (Auto) 4.8 H 7.0 H Baso % (Auto) 0.7 0.9 Neut # (Auto) 7500 H 5200 Lymph # (Auto) 1300 1400 [place] # (Auto) 1000 H 900 Eos # (Auto) 500 H 600 H Baso # (Auto) 100 100 Sodium 139 135 L Potassium 4.1 4.4 Chloride 101 104 Carbon Dioxide 31 29 BUN 24 H 20 H Creatinine 0.74 0.76 Estimated GFR > 60 > 60 BUN/Creatinine Ratio 32.4 H 26.3 H Glucose 104 H 99 Calcium 9.3 8.7 Magnesium 2.1 Total Bilirubin 0.2 AST 30 ALT 27 Alkaline Phosphatase 63 Total Protein 6.9 Albumin 4.3 Globulin 2.6 Albumin/Globulin Ratio 1.7 Lipase 316 H Ur Bilirubin Confirm Negative [facility] Medical History Gastritis due to nonsteroidal anti-inflammatory drug (NSAID) GERD (gastroesophageal reflux disease) Scleroderma Herpes Anal cancer (~2018) HPV in female Migraine aura without headache Psoriasis Surgical History Anesthesia History of intestinal surgery (~2019) Family History Father COPD (chronic obstructive pulmonary disease) Mother Osteoarthritis Bowel obstruction Chronic pain Sister Osteoarthritis Social History marital status: household members: spouse lives independently: Yes caregiver/support person: No pets and animals: Yes education level: college (2 year nursing ) occupational status: previously employed (Retired Nurse ) seatbelt use: always helmet use: Yes water heater temp set < 120 deg: Yes working smoke detector in home: Yes fire extinguisher in home: Yes carbon monox detector in home: Yes firearms in home: No do you feel safe at home: Yes Smoking Status: Never smoker alcohol intake: former substance use type: does not use well-balanced diet: about half the time daily servings fruits/ve-4 caffeine: Yes (rare/occasional) eating out: rarely or never Type(s) of exercise: walking frequency: daily duration: 15-30 minutes/day Discharge Plan Discharge Plan Patient Disposition: Home Discharge orders & Medications Prescriptions: New polyethylene glycol 3350 17 gram Powder In Packet 17 gm PO DAILY PRN (Reason: Abdominal Distention) Qty: 30 0RF Continued clobetasol 0.05 % cream 1 g topical BID Qty: 60 2RF rizatriptan 10 mg tablet 10 mg PO Q12H MDD 2 PRN (Reason: migraine headache) Qty: 9 5RF estradiol 0.1 mg/24 hr patch semiweekly 1 patch transdermal 2XW Qty: 24 2RF Rx Instructions: apply 1 patch for 3 days alternating with 1 patch for 4 days each week desvenlafaxine succinate 50 mg tablet extended release 24 hr 50 mg PO DAILY Qty: 90 0RF sumatriptan succinate 100 mg tablet 100 mg PO Q12H PRN (Reason: for migraine) Qty: 9 11RF Rx Instructions: take 1 tab at onset of headache; if no relief, may repeat 1 tab after at least 2 hrs; max = 2 tabs/24 hrs PO valacyclovir 1 gram tablet 1,000 mg PO DAILY Qty: 90 0RF progesterone micronized 100 mg capsule See Rx Instructions PO BEDTIME MDD 600 Qty: 120 3RF Rx Instructions: 1-4 capsules orally at bedtime, in combination with one 200mg cap for a max total dose of 600mg HS. Patient is titrating to find dose that works best. progesterone micronized 200 mg capsule See Rx Instructions PO .COMPLEX Qty: 90 3RF Rx Instructions: 1 capsule orally at bedtime, in combination with 1-4 100mg caps for a max total dose of 600mg HS. Patient is titrating to find dose that works best. dicyclomine 20 mg tablet 20 mg PO QPM Qty: 90 0RF bupropion HCl 75 mg tablet 75 mg PO DAILY Qty: 90 3RF meloxicam 15 mg tablet 15 mg PO DAILY MDD 15mg PRN (Reason: pain, moderate to severe) Qty: 90 3RF Rx Instructions: Take with food, ensure minimum 48 oz water daily (divided first thing in the morning and between meals) while using this medication Follow up/Referrals: Wilma Adhikari DO [Primary Care Provider, Medical] Visit Report/Discharge Packet Stand Alone Forms: Patient Portal/API, Stroke Signs & Symptoms Discharge Data Primary Care Provider: Wilma Adhikari
[2025-03-26] MEDS: METOCLOPRAMIDE 10 MG/2 ML INJ IV ×2 (16:01→23:00)
[2025-03-26] MEDS: DICYCLOMINE 10 MG CAPSULE 20 MG PO (23:47)
[2025-03-27] MEDS: SODIUM CHLORIDE 0.9% 1,000 ML 75 ML IV (06:30)
[2025-03-27] MEDS: PIPERACILLIN/TAZO 3.375 GM in SODIUM CHLORIDE 0.9% 100 ML IV (06:31)
[2025-03-27] MEDS: METOCLOPRAMIDE 10 MG/2 ML INJ IV (06:31)
[2025-03-27 08:15] VITALS: BP 103/59; PULSE 73; RESP 16; TEMP 35.7; O2SAT 97
--- NOTE | 2025-03-27 08:15 | DI.US.S_ITS ---
PROCEDURE: US ABDOMEN LIMITED INDICATIONS: elevat lipase visualize gallbladder/liver-look for hemangiom TECHNIQUE: Real-time scanning was performed of the abdominal and retroperitoneal organs, with image documentation. COMPARISON: [facility], CT, CT ABDOMEN PELVIS W CON, 03/25/2025, 21:59. FINDINGS: Liver: Liver is normal in size and homogeneous in echotexture. Right hepatic lobe cyst measuring 1.1 x 1.3 x 0.9 cm. No hepatic mass lesion seen. Gallbladder: Dilated gallbladder. Mild wall thickening. No gallstone or gallbladder sludge. No pericholecystic fluid. Positive sonographic Stewart sign. Biliary ducts: Intrahepatic bile ducts are non-dilated. Extrahepatic bile duct caliber measures 6 mm. Normal is 6-7 mm or less in diameter, or 10 mm or less post-cholecystectomy. Pancreas: Visualized portions of the pancreas are sonographically normal. Miscellaneous: No free abdominal fluid. IMPRESSION: Gallbladder distension and mild gallbladder wall thickening with abnormal/positive sonographic Stewart sign. No gallstones. Findings may represent acalculous cholecystitis. Dictated by: Jhonatan Herrera M.D. on 03/27/2025 at 9:49 Approved by: Jhonatan Herrera M.D. on 03/27/2025 at 9:52
--- NOTE | 2025-03-27 08:38 | PM.PN.IH.1 ---
Subjective Subjective Date Patient Seen: 03/27/25 Time Patient Seen: 08:40 Interval history: Patient is resting comfortably in bed denies any abdominal pain states her ostomy is functioning well and passing soft stool. Patient is tolerating diet well. Patient is scheduled for a Gastrografin enema through her ostomy to evaluate the colon and also for evacuation of retained stool. Patient also is awaiting an ultrasound on CT scan. She may have had some hemangiomas near her gallbladder just evaluating this to make sure she does not have any problems if she has a outpatient or elective gallbladder if she ever has any problems. No morning laboratory x-rays are on ultrasound are pending Vitals: Temperature is 97.1? pulse 74 respirations 18 BP is 107/56 ostomy output was 200 cc semi solid and liquid Heart regular rate and rhythm without murmurs lungs are clear to auscultation no rales rhonchi or wheezes noted abdomen is soft nondistended no masses or peritoneal signs ostomy bag is half full. Impression: Abdominal pain with obstipation with end colostomy History of anorectal cancer status post abdominal perineal resection with follow-up revision of incision hernia Plan: Awaiting results of Gastrografin enema through ostomy an ultrasound of the gallbladder if doing well possible discharge today or in 24 hours all questions were answered to patient's satisfaction. Discussed bowel habits in detail including following up with family physician possibly going on lineses Amitiza if these fail possible golyte. Exam Vital Signs (past 8 hours): - 03/27/25 08:15 Temperature 96.2 F L Pulse Rate 73 Respiratory Rate 16 Blood Pressure 103/59 L Pulse Oximetry 97 Oxygen Delivery Method Room Air Oxygen Flow Rate 0 Objective Labs 03/26/25 06:16 03/26/25 06:16 [facility] Medical History Gastritis due to nonsteroidal anti-inflammatory drug (NSAID) GERD (gastroesophageal reflux disease) Scleroderma Herpes Anal cancer (~2018) HPV in female Migraine aura without headache Psoriasis Surgical History Anesthesia History of intestinal surgery (~2019) Family History Father COPD (chronic obstructive pulmonary disease) Mother Osteoarthritis Bowel obstruction Chronic pain Sister Osteoarthritis Social History marital status: household members: spouse lives independently: Yes caregiver/support person: No pets and animals: Yes education level: college (2 year nursing ) occupational status: previously employed (Retired Nurse ) seatbelt use: always helmet use: Yes water heater temp set < 120 deg: Yes working smoke detector in home: Yes fire extinguisher in home: Yes carbon monox detector in home: Yes firearms in home: No do you feel safe at home: Yes Smoking Status: Never smoker alcohol intake: former substance use type: does not use well-balanced diet: about half the time daily servings fruits/ve-4 caffeine: Yes (rare/occasional) eating out: rarely or never Type(s) of exercise: walking frequency: daily duration: 15-30 minutes/day Assessment & Plan Time-Based Coding :: [TOTAL MINUTES] spent with patient and on the chart (including review of chart, obtaining history, exam, reviewing outside data, placing orders, documenting exam and treatment plan, and counseling patient) on [DATE]. PROFEE Design Engineering Technician Document charge(s): Yes
--- NOTE | 2025-03-27 13:24 | P.PN_ITS ---
Subjective Subjective Date Patient Seen: 03/27/25 Time Patient Seen: 01:25 Interval history: Patient is doing well she states that her ostomy is functioning well as filling with soft stool multiple times feels that she does not need to have the Gastrografin enemas her bowels were functioning well now at this time. We will discuss with hospitalist we may discharge the patient she is follow-up with her family physician and recommended she probably get on Amitiza or another oral laxative all questions were answered patient's satisfaction may discharge when okay with hospitalist we will cancel the Gastrografin enema. Return if any problems questions or concerns. Exam Vital Signs (past 8 hours): - 03/27/25 08:15 Temperature 96.2 F L Pulse Rate 73 Respiratory Rate 16 Blood Pressure 103/59 L Pulse Oximetry 97 Oxygen Delivery Method Room Air Oxygen Flow Rate 0 Objective Labs 03/26/25 06:16 03/26/25 06:16 [facility] Medical History Gastritis due to nonsteroidal anti-inflammatory drug (NSAID) GERD (gastroesophageal reflux disease) Scleroderma Herpes Anal cancer (~2018) HPV in female Migraine aura without headache Psoriasis Surgical History Anesthesia History of intestinal surgery (~2019) Family History Father COPD (chronic obstructive pulmonary disease) Mother Osteoarthritis Bowel obstruction Chronic pain Sister Osteoarthritis Social History marital status: household members: spouse lives independently: Yes caregiver/support person: No pets and animals: Yes education level: college (2 year nursing ) occupational status: previously employed (Retired Nurse ) seatbelt use: always helmet use: Yes water heater temp set < 120 deg: Yes working smoke detector in home: Yes fire extinguisher in home: Yes carbon monox detector in home: Yes firearms in home: No do you feel safe at home: Yes Smoking Status: Never smoker alcohol intake: former substance use type: does not use well-balanced diet: about half the time daily servings fruits/ve-4 caffeine: Yes (rare/occasional) eating out: rarely or never Type(s) of exercise: walking frequency: daily duration: 15-30 minutes/day Assessment & Plan Time-Based Coding :: [TOTAL MINUTES] spent with patient and on the chart (including review of chart, obtaining history, exam, reviewing outside data, placing orders, documenting exam and treatment plan, and counseling patient) on [DATE]. PROFEE Melter Supervisor [employer] Document charge(s): Yes
--- NOTE | 2025-03-27 14:47 | PC.NURSE ---
Addendum entered by Terry Harrell R.N. 03/27/25 14:51: Patient medication where retrieved from pharmacy and handed to patient at bedside. Original Note: Patient discharge teaching and packet reveiw done at bedside with patient. Patient states understanding of patient teaching. Pt was escorted down to private vehicle with family member present. Patient req. to walk out on own. Patient left hosp. A&o x4, and in stable condition.
== END 2025-03-27 14:51 | disposition home or self-care (01) | DRG 390 ==
LOC: ED 03-26 04:00 → AC 03-26 04:05
PROVIDERS: Admitting Provider Internal Medicine; Emergency Provider Emergency Medicine; PCP Family Medicine; Referring Provider Emergency Medicine; Visit Provider Internal Medicine
DX: K56.609 Unspecified intestinal obstruction, unspecified as to partial versus complete obstruction (principal); K52.9 Noninfective gastroenteritis and colitis, unspecified; M34.9 Systemic sclerosis, unspecified; L40.9 Psoriasis, unspecified; K21.9 Gastro-esophageal reflux disease without esophagitis; K59.00 Constipation, unspecified; G43.909 Migraine, unspecified, not intractable, without status migrainosus; Z90.49 Acquired absence of other specified parts of digestive tract; Z85.048 Personal history of other malignant neoplasm of rectum, rectosigmoid junction, and anus; Z93.3 Colostomy status; Z98.890 Other specified postprocedural states; Z87.19 Personal history of other diseases of the digestive system
CPT/HCPCS: 36415; 74177; 76705; 80048; 80053; 81003; 83690; 83735; 85025; 87040; 96365; 96375; 99284; 99291; J2405; J2543; J2765; Q9967